=== PATIENT | female | born 1955 | race Caucasian/White ===

== ENCOUNTER 2020-03-28 13:33 | Outpatient (CLI) | payer MEDICARE, OTHER | END 2020-03-28 23:59 | disposition home or self-care (01) | LOC: CFH 13:33 | PROVIDERS: ATTEND Obstetrics & Gynecology | DX: N63.21 Unspecified lump in the left breast, upper outer quadrant (principal); R92.8 Other abnormal and inconclusive findings on diagnostic imaging of breast | CPT/HCPCS: 76642; 77065 ==

== ENCOUNTER 2020-03-30 07:19 | Outpatient (CLI) | payer MEDICARE, OTHER ==
[2020-03-30] MEDS ORDERED: LIDOCAINE 1%-EPI 1:100K, 20ML ONE (08:00)
[2020-03-30] MEDS ORDERED: LIDOCAINE 1%, 20ML ONE (08:00)
[2020-03-30] MEDS ORDERED: SODIUM BICARBONATE 4.2%, 5ML ONE (08:00)
== END 2020-03-30 23:59 | disposition home or self-care (01) ==
LOC: CFH 07:19
PROVIDERS: ATTEND Obstetrics & Gynecology
DX: N63.20 Unspecified lump in the left breast, unspecified quadrant (principal); C50.012 Malignant neoplasm of nipple and areola, left female breast; C77.3 Secondary and unspecified malignant neoplasm of axilla and upper limb lymph nodes; Z17.0 Estrogen receptor positive status [ER+]
CPT/HCPCS: 10035; 19083; 38505; 76942; 77065; 88305; 88341; 88342; 88360; J3490; 19285

== ENCOUNTER → 2020-04-19 | Outpatient (CLI) | payer MEDICARE, OTHER | END | disposition home or self-care (01) | LOC: PETCFH 09:20 | PROVIDERS: ATTEND Surgery | DX: C50.111 Malignant neoplasm of central portion of right female breast (principal); N63.20 Unspecified lump in the left breast, unspecified quadrant | CPT/HCPCS: 78815; A9552 ==

== ENCOUNTER 2020-04-20 10:44 | Outpatient (CLI) | payer MEDICARE, OTHER ==
[2020-04-20] MEDS ORDERED: GADOTERATE 10 MMOL/20 ML VIAL ONE (12:44)
[2020-04-20 12:58] LABS: CALCIUM 9.4 mg/dL (8.5-10.1); CHLORIDE 108 mmol/L (98-107)
[2020-04-20 13:03] LABS: MEAN CORPUSCULAR HEMOGLOBIN 31.5 pg (27.0-34.8); MEAN CORPUSCULAR HGB CONC 33.9 g/dL (32.4-35.8); MEAN CORPUSCULAR VOLUME 92.8 fL (80-100); PLATELET COUNT 326 x10^3/uL (130-400); RED CELL DISTRIBUTION WIDTH 13.8 % (9.6-15.2)
[2020-04-20 13:06] LABS: ALANINE AMINOTRANSFERASE 49 U/L (12-78); ALKALINE PHOSPHATASE 82 U/L (45-117); ANION GAP 8 mmol/L (5-15); BILIRUBIN,TOTAL 0.7 mg/dL (0.2-1.0); CREATININE 1.07 mg/dL (0.55-1.02)
[2020-04-20 13:22] LABS: BASOPHILS # (AUTO) 0.01 x10^3/uL (0-0.1); BASOPHILS % (AUTO) 0 % (0-1); EOSINOPHILS # (AUTO) 0.05 x10^3/uL (0-0.4); EOSINOPHILS % (AUTO) 1 % (1-7); LYMPHOCYTES # (AUTO) 1.16 x10^3/uL (1-3.4); LYMPHOCYTES % (AUTO) 14 % (22-44); MD SCAN; MONOCYTES # (AUTO) 0.38 x10^3/uL (0.2-0.8); MONOCYTES % (AUTO) 5 % (2-9); NEUTROPHILS # (AUTO) 6.55 x10^3/uL (1.8-6.8); NEUTROPHILS % (AUTO) 80 % (42-75)
== END 2020-04-20 23:59 | disposition home or self-care (01) ==
LOC: CFH 10:44
PROVIDERS: ATTEND Surgery
DX: C50.812 Malignant neoplasm of overlapping sites of left female breast (principal); C50.111 Malignant neoplasm of central portion of right female breast; N63.21 Unspecified lump in the left breast, upper outer quadrant; R23.4 Changes in skin texture
CPT/HCPCS: 36415; 77049; 80053; 82306; 85025; 86300; A9575; C8937; C8908

== ENCOUNTER → 2020-04-24 | Outpatient (CLI) | payer MEDICARE, OTHER | END | disposition home or self-care (01) | LOC: CVU 06:51 | PROVIDERS: ATTEND Internal Medicine Hematology & Oncology | DX: I37.1 Nonrheumatic pulmonary valve insufficiency (principal); C50.812 Malignant neoplasm of overlapping sites of left female breast | CPT/HCPCS: 93306; 93356 ==

== ENCOUNTER 2020-05-03 07:24 | Day surgery (SDC) | payer MEDICARE, OTHER ==
[~2020-05-03] VITALS: Ht 162.6 cm; Wt 74.4 kg
[2020-05-03] MEDS ORDERED: SODIUM CHLORIDE 0.9% 1,000 ML IV SCH (07:59)
[2020-05-03] MEDS ORDERED: CEFAZOLIN PMX 1GM/50ML 50 ML IV STA (07:59)
[2020-05-03 08:00] VITALS: BP 107/75
[2020-05-03] MEDS ORDERED: CEFAZOLIN PMX 1GM/50ML 50 ML ONE (08:03)
[2020-05-03] MEDS ORDERED: LIDOCAINE 1%, 20ML ONE (08:47)
[2020-05-03] MEDS ORDERED: LIDOCAINE 1%, 10ML ONE (08:47)
[2020-05-03] MEDS ORDERED: MIDAZOLAM 1 MG/ML, 5ML ONE (09:03)
[2020-05-03] MEDS ORDERED: FLUMAZENIL 0.1 MG/1 ML, 5ML ONE (09:03)
[2020-05-03] MEDS ORDERED: FENTANYL PF 100 MCG/2ML ONE (09:03)
[2020-05-03] MEDS ORDERED: NALOXONE 1 MG/ML, 2ML ONE (09:03)
[2020-05-03] MEDS ORDERED: DIPHENHYDRAMINE 50 MG/ML, 1ML ONE (10:00)
== END 2020-05-03 11:55 | disposition home or self-care (01) ==
LOC: OUT 07:24
PROVIDERS: ATTEND Internal Medicine Hematology & Oncology
DX: Z45.2 Encounter for adjustment and management of vascular access device (principal); C50.812 Malignant neoplasm of overlapping sites of left female breast; I10 Essential (primary) hypertension; Z17.0 Estrogen receptor positive status [ER+]; F17.210 Nicotine dependence, cigarettes, uncomplicated; Z72.89 Other problems related to lifestyle; Z79.899 Other long term (current) drug therapy; Z90.710 Acquired absence of both cervix and uterus; Z85.42 Personal history of malignant neoplasm of other parts of uterus
CPT/HCPCS: 36561; 76937; 77001; 99156; 99157; C1788; J0690; J1200; J1642; J2250; J3010; J7030; J2310

== ENCOUNTER → 2020-07-10 | Outpatient (CLI) | payer MEDICARE, OTHER | END | disposition home or self-care (01) | LOC: CFH 09:49 | PROVIDERS: ATTEND Internal Medicine Hematology & Oncology | DX: C50.812 Malignant neoplasm of overlapping sites of left female breast (principal); N63.0 Unspecified lump in unspecified breast | CPT/HCPCS: 76642 ==

== ENCOUNTER → 2020-09-06 | Outpatient (CLI) | payer MEDICARE, OTHER ==
[~2020-09-06] MED LIST: GADOTERATE 10 MMOL/20 ML VIAL ONE
== END | disposition home or self-care (01) ==
LOC: CFH 13:22
PROVIDERS: ATTEND Internal Medicine Hematology & Oncology
DX: C50.812 Malignant neoplasm of overlapping sites of left female breast (principal)
CPT/HCPCS: 77049; A9575; C8937; C8908

== ENCOUNTER → 2020-09-19 | Outpatient (CLI) | payer MEDICARE, OTHER | END | disposition home or self-care (01) | LOC: RAD 12:04 | PROVIDERS: ATTEND Internal Medicine Hematology & Oncology | DX: C50.812 Malignant neoplasm of overlapping sites of left female breast (principal); R22.43 Localized swelling, mass and lump, lower limb, bilateral | CPT/HCPCS: 93970 ==

== ENCOUNTER → 2020-09-21 | Outpatient (CLI) | payer MEDICARE, OTHER ==
[~2020-09-21] MED LIST changes: +CALC1CAP8 PO; +CHOL10003 PO; +FURO-93 PO; -GADOTERATE 10 MMOL/20 ML VIAL ONE; +LACT10SO28 PO; +LORA-445 PO; +MAGOXIDE PO; +OMEP-110 PO; +PARO10TA56 PO; +POTA20TA6 PO; +VIT1TABL32 PO
[2020-09-21 16:18] LABS: ALANINE AMINOTRANSFERASE 19 U/L (12-78); ANION GAP 5 mmol/L (5-15); CALCIUM 8.7 mg/dL (8.5-10.1); CHLORIDE 106 mmol/L (98-107); CREATININE 0.96 mg/dL (0.55-1.02)
[2020-09-21 16:20] LABS: ALKALINE PHOSPHATASE 89 U/L (45-117); BILIRUBIN,TOTAL 0.4 mg/dL (0.2-1.0); TOTAL PROTEIN 5.8 g/dL (6.4-8.2)
== END | disposition home or self-care (01) ==
LOC: STAR 14:31
PROVIDERS: ATTEND Surgery
DX: Z01.818 Encounter for other preprocedural examination (principal); Z20.822 Contact with and (suspected) exposure to COVID-19
CPT/HCPCS: 80053; 87635; 93005

== ENCOUNTER 2020-09-25 09:07 | Day surgery (SDC) | payer MEDICARE, OTHER ==
[~2020-09-25] VITALS: Ht 162.6 cm; Wt 68.2 kg
[2020-09-25] MEDS ORDERED: ISOSULFAN BLUE 10 MG/ML, 5ML IV ONE (09:28)
[2020-09-25] MEDS ORDERED: EPINEPHRINE 1 MG/ML, 1ML ONE (09:28)
[2020-09-25] MEDS ORDERED: BUPIVACAINE/PF 0.5% ONE (09:28)
[2020-09-25 09:53] VITALS: BP 145/84
[2020-09-25] MEDS ORDERED: CHLORHEXIDINE 15 ML UDC ONE (10:03)
[2020-09-25] MEDS ORDERED: CHLORHEXIDINE 15 ML UDC MM STA (10:06)
[2020-09-25] MEDS ORDERED: MIDAZOLAM 1 MG/ML, 2ML ONE (10:22)
[2020-09-25] MEDS ORDERED: PROPOFOL 50 ML ONE (10:22)
[2020-09-25] MEDS ORDERED: ONDANSETRON 2MG/ML, 2ML ONE (10:23)
[2020-09-25] MEDS ORDERED: CEFAZOLIN 1,000 MG ONE (10:23)
[2020-09-25] MEDS ORDERED: PROPOFOL 10 MG/ML, 20ML ONE ×2 (10:23→11:06)
[2020-09-25] MEDS ORDERED: FENTANYL PF 250 MCG/5ML ONE (10:23)
[2020-09-25] MEDS ORDERED: LACTATED RINGERS 1,000 ML IV SCH (10:30)
[2020-09-25] MEDS ORDERED: ACETAMINOPHEN 325 MG TABLET PO PRN (11:00)
[2020-09-25] MEDS ORDERED: morphine SULFATE 10 MG/ML, 1ML IVPush PRN (11:00)
[2020-09-25] MEDS ORDERED: PROMETHAZINE 25 MG/ML, 1ML IVPush PRN (11:00)
[2020-09-25] MEDS ORDERED: LABETALOL 5MG/ML, 20ML IV PRN (11:00)
[2020-09-25] MEDS ORDERED: MEPERIDINE/PF 25MG/0.5ML IVPush PRN (11:00)
[2020-09-25] MEDS ORDERED: DIAZEPAM 5 MG/ML, 2ML IVPush PRN (11:00)
[2020-09-25] MEDS ORDERED: OXYcodone 5 MG/5 ML ORAL.SOL UDC PO PRN (11:00)
[2020-09-25] MEDS ORDERED: ONDANSETRON 2MG/ML, 2ML IVPush PRN (11:00)
[2020-09-25] MEDS ORDERED: EPHEDRINE 50 MG/ML, 1ML IVPush PRN (11:00)
[2020-09-25] MEDS ORDERED: EPHEDRINE 50 MG/ML, 1ML IM PRN (11:00)
[2020-09-25] MEDS ORDERED: DIPHENHYDRAMINE 50 MG/ML, 1ML IVPush PRN (11:00)
[2020-09-25] MEDS ORDERED: DEXAMETHASONE 4 MG/ML, 5ML ONE (11:06)
[2020-09-25] MEDS ORDERED: HYDR-1067 PO (11:28)
[2020-09-25] MEDS ORDERED: FENTANYL PF 100 MCG/2ML ONE ×2 (11:47→11:57)
[2020-09-25] MEDS ORDERED: MEPERIDINE/PF 25MG/ML,1ML ONE (11:48)
[2020-09-25] MEDS: FENTANYL PF 100 MCG/2ML IV PRN ×2 (11:50→12:00)
[2020-09-25] MEDS ORDERED: OXYcodone 5 MG/5 ML ORAL.SOL UDC ONE (11:57)
[2020-09-25] MEDS ORDERED: ACETAMINOPHEN 650 MG/20.3 ML UDC ONE (12:02)
== END 2020-09-25 17:00 | disposition home or self-care (01) ==
LOC: OUT 09:07 → EDSTATUS 12:00 → OUT 17:00
PROVIDERS: ATTEND Surgery
DX: C50.112 Malignant neoplasm of central portion of left female breast (principal); N63.10 Unspecified lump in the right breast, unspecified quadrant; I10 Essential (primary) hypertension; F17.210 Nicotine dependence, cigarettes, uncomplicated; Z85.42 Personal history of malignant neoplasm of other parts of uterus; Z90.710 Acquired absence of both cervix and uterus; Z98.890 Other specified postprocedural states; Z79.899 Other long term (current) drug therapy; Z72.89 Other problems related to lifestyle
CPT/HCPCS: 19303; 38525; 38792; 88305; 88307; 88333; A9541; C1729; J0171; J0690; J1100; J2250; J2405; J2704; J3010; J7120

== ENCOUNTER → 2020-10-19 | Outpatient (CLI) | payer MEDICARE, OTHER ==
[~2020-10-19] MED LIST changes: +HYDR-1067 PO
== END | disposition home or self-care (01) ==
LOC: ROC 08:20
PROVIDERS: ATTEND Radiology Radiation Oncology
DX: C50.412 Malignant neoplasm of upper-outer quadrant of left female breast (principal); I10 Essential (primary) hypertension; Z79.899 Other long term (current) drug therapy; Z87.891 Personal history of nicotine dependence; Z72.89 Other problems related to lifestyle; Z98.890 Other specified postprocedural states; Z90.710 Acquired absence of both cervix and uterus
CPT/HCPCS: G0463

== ENCOUNTER 2020-12-27 08:06 | Outpatient (CLI) | payer MEDICARE, OTHER ==
[~2020-12-27 08:06] MED LIST changes: -HYDR-1067 PO; +HYDR-2214 PO
== END 2020-12-27 23:59 | disposition home or self-care (01) ==
LOC: ROC 08:06
PROVIDERS: ATTEND Radiology Radiation Oncology
DX: Z08 Encounter for follow-up examination after completed treatment for malignant neoplasm (principal); Z85.3 Personal history of malignant neoplasm of breast; E83.42 Hypomagnesemia; I10 Essential (primary) hypertension; Z90.710 Acquired absence of both cervix and uterus; Z72.89 Other problems related to lifestyle; Z79.899 Other long term (current) drug therapy; Z87.891 Personal history of nicotine dependence; Z98.890 Other specified postprocedural states
CPT/HCPCS: G0463

== ENCOUNTER → 2021-01-15 | Outpatient (CLI) | payer MEDICARE, OTHER | END | disposition home or self-care (01) | LOC: CVU 09:15 | PROVIDERS: ATTEND Internal Medicine Hematology & Oncology | DX: C50.812 Malignant neoplasm of overlapping sites of left female breast (principal) | CPT/HCPCS: 93306; 93356 ==

== ENCOUNTER 2021-05-03 10:12 | Outpatient (CLI) | payer MEDICARE, OTHER ==
[~2021-05-03 10:12] MED LIST changes: +POTA-143 PO; -POTA20TA6 PO
[2021-05-03 10:53] LABS: BASOPHILS % (AUTO) 1 % (0-1); EOSINOPHILS % (AUTO) 3 % (1-7); LYMPHOCYTES % (AUTO) 12 % (22-44); MEAN CORPUSCULAR HEMOGLOBIN 30.5 pg (27.0-34.8); MEAN CORPUSCULAR HGB CONC 33.7 g/dL (32.4-35.8); MEAN PLATELET VOLUME 8.3 fL (7.4-10.4); MONOCYTES % (AUTO) 8 % (2-9); NEUTROPHILS % (AUTO) 76 % (42-75); PLATELET COUNT 104 x10^3/uL (130-400); RED BLOOD COUNT 4.29 x10^6/uL (3.82-5.3); RED CELL DISTRIBUTION WIDTH 18.1 % (9.6-15.2)
[2021-05-03 10:57] LABS: ALBUMIN 3.3 g/dL (3.4-5.0); ANION GAP 8 mmol/L (5-15); CALCIUM 9.4 mg/dL (8.5-10.1); CHLORIDE 106 mmol/L (98-107)
[2021-05-03 11:09] LABS: ALANINE AMINOTRANSFERASE 28 U/L (12-78); ALKALINE PHOSPHATASE 128 U/L (45-117); BILIRUBIN,TOTAL 1.2 mg/dL (0.2-1.0); CHOL/HDL RATIO 3.1; CHOLESTEROL, TOTAL 213 mg/dL (140-239); CREATININE 1.03 mg/dL (0.55-1.02); HDL CHOL % 32 % (28-40); HDL CHOLESTEROL (DIRECT) 68 mg/dL (40-60); LDL CHOLESTEROL,CALCULATED 127 mg/dL (54-169); LDL/HDL RATIO 1.9 (0.5-3.0); T4 (THYROXINE) 8.6 mcg/dL (4.8-13.9); TOTAL PROTEIN 6.9 g/dL (6.4-8.2); TRIGLYCERIDES 92 mg/dL (50-200); VLDL CHOLESTEROL 18 mg/dL (0-25)
== END 2021-05-03 23:59 | disposition home or self-care (01) ==
LOC: CVU 10:12 → LAB 23:59
PROVIDERS: ATTEND Internal Medicine Hematology & Oncology
DX: C50.812 Malignant neoplasm of overlapping sites of left female breast (principal); I08.8 Other rheumatic multiple valve diseases; I12.9 Hypertensive chronic kidney disease with stage 1 through stage 4 chronic kidney disease, or unspecified chronic kidney disease; E78.5 Hyperlipidemia, unspecified; F41.9 Anxiety disorder, unspecified; N18.30 Chronic kidney disease, stage 3 unspecified; D70.1 Agranulocytosis secondary to cancer chemotherapy; Z45.2 Encounter for adjustment and management of vascular access device; E83.42 Hypomagnesemia; B37.89 Other sites of candidiasis; Z79.899 Other long term (current) drug therapy
CPT/HCPCS: 36415; 80053; 80061; 84436; 84443; 84481; 85025; 93306; 93356

== ENCOUNTER 2021-05-30 07:23 | Outpatient (CLI) | payer MEDICARE, OTHER | END 2021-05-30 23:59 | disposition home or self-care (01) | LOC: ROC 07:23 | PROVIDERS: ATTEND Radiology Radiation Oncology | DX: Z02.9 Encounter for administrative examinations, unspecified (principal) ==

== ENCOUNTER → 2021-05-31 | Outpatient (CLI) | payer MEDICARE, OTHER | END | disposition home or self-care (01) | LOC: ROC 07:11 | PROVIDERS: ATTEND Radiology Radiation Oncology | DX: Z08 Encounter for follow-up examination after completed treatment for malignant neoplasm (principal); Z85.3 Personal history of malignant neoplasm of breast; F41.9 Anxiety disorder, unspecified; I12.9 Hypertensive chronic kidney disease with stage 1 through stage 4 chronic kidney disease, or unspecified chronic kidney disease; N18.30 Chronic kidney disease, stage 3 unspecified; E78.5 Hyperlipidemia, unspecified; E83.42 Hypomagnesemia; Z79.899 Other long term (current) drug therapy | CPT/HCPCS: G0463 ==